=== PATIENT | female | born 1975 | race Caucasian/White ===

== ENCOUNTER 2016-11-04 16:08 | Emergency (ER) | payer OTHER ==
--- NOTE | 2016-11-06 02:42 | ER ---
ADMIT: 11/04/2016 RM/LOC: [facility] MR#: [id number] [facility] [address] [place] [id number] SYLVIA MESA [address] [place] [id number] Emergency Room Report SEX: F AGE: 41 : 1975 DATE: 11/04/2016 TIME: 1608 hours. Please refer to my T-sheet for complete H and P. Briefly, the patient is a 41-year-old, who comes in with abdominal pain started about 2 hours ago, 01/07. She has had several episodes of diarrhea. She has not traveled anywhere recently. Has not been on antibiotics. She does have a history of reflux, otherwise very healthy. She does smoke. PHYSICAL EXAMINATION: VITAL SIGNS: Blood pressure 106/79, pulse 71, respirations 18, temperature 98.1, sat 100%. GENERAL: She is in mild distress. HEENT: Grossly normal. LUNGS: Clear. HEART: Regular. ABDOMEN: Tender to epigastric. No rebound or guarding. No marked pain at McBurney's point. EMERGENCY DEPARTMENT COURSE: CBC normal except white count 17. Chemistries normal except potassium 3.4. was negative. UA showed 50 red cells, otherwise normal. CT scan revealed gastroenteritis, but no evidence of appendicitis. Gallbladder looked okay as far as what they can see. No obstruction. She was given Zofran 8 total of p.o., 1 mg of Dilaudid IM. She felt much better. She refused an IV because she does not like them. Talked to her about followup in the consequences of this pain and the reasons to return. She was ready for discharge. ASSESSMENT: 1. Abdominal pain. 2. Nausea, vomiting, and diarrhea. 3. Leukocytosis. PLAN: Fluids. Return if worse. Xin, I wrote her a script for 4 mg tablets 20 of them. See that on 2 to 3 days recheck. Josue Avila MD/ rebekah JOB #: [id number] CC: Josue Avila MD, Attending Physician Rian Hess MD, Family Physician
== END 2016-11-04 18:51 | disposition home or self-care (01) ==
LOC: ER 16:08
DX: R10.9 Unspecified abdominal pain (principal); R11.2 Nausea with vomiting, unspecified; R19.7 Diarrhea, unspecified; D72.829 Elevated white blood cell count, unspecified; F17.210 Nicotine dependence, cigarettes, uncomplicated; K21.9 Gastro-esophageal reflux disease without esophagitis; Z90.89 Acquired absence of other organs